=== PATIENT | male | born 1960 | race Caucasian/White ===

== ENCOUNTER 2017-07-24 12:53 | Emergency (ER) | payer BC, OTHER ==
--- NOTE | 2017-07-24 13:05 | EDM.PDOC ---
ED HPI GENERAL MEDICAL PROBLEM - General Chief Complaint: Laceration Stated Complaint: LACERATION TO FINGER Time Seen by Provider: 07/24/17 12:57 Source of Information: Reports: Patient, RN, RN Notes Reviewed History Limitations: Reports: No Limitations - History of Present Illness INITIAL COMMENTS - FREE TEXT/NARRATIVE: Patient presents the emergency room at [facility] after he sustained a laceration to the left index finger. The patient states that he was cutting a piece of insulation to wraparound conduit when the knife slipped causing the laceration. Patient denies any numbness tingling or paresthesia to the affected extremity. The patient denies any previous injury or trauma to the affected site. Patient is not sure of his tetanus status. Otherwise no other concerns. Onset: Today - Related Data Allergies Allergy/AdvReac Type Severity Reaction Status Date / Time No Known Allergies Allergy Verified 07/24/17 13:05 Home Meds: Home Meds . [No Known Home Meds] 07/24/17 [History] ED ROS GENERAL - Review of Systems Review Of Systems: See Below Constitutional: Denies: Fever, Chills, Weakness Respiratory: Denies: Shortness of Breath, Cough Cardiovascular: Denies: Chest Pain, Palpitations Skin: Reports: Wound (cut to left index finger) Neurological: Denies: Numbness, Paresthesia, Tingling ED EXAM, SKIN/RASH Exam: See Below Exam Limited By: No Limitations General Appearance: Alert, No Apparent Distress Respiratory/Chest: No Respiratory Distress, Lungs Clear, Normal Breath Sounds Cardiovascular: Normal Peripheral Pulses, Regular Rate, Rhythm Peripheral Pulses: 2+: Radial (L), Radial (R) Neurological: Alert, Oriented Skin: Warm, Dry, Normal Color, Wound/Incision (2cm vertical laceraton to the distal left index finger; low grade venous ooze; area appears clean) ED SKIN PROCEDURES - Laceration/Wound Repair Left Distal Finger Lac/Wound length In cm: 2 Appearance: Superficial, Linear, Clean Distal NVT: Neuro & Vascular Intact, No Tendon Injury Anesthetic Type: Other (None) Skin Prep: Chlorhexidine (Hibiciens), Saline Exploration/Debridement/Repair: Wound Explored, In a Bloodless Field, Explored to Base, No Foreign Material Found Closed with: Dermabond Sterile Dressing Applied: Nurse Tetanus Status Addressed: Yes Complications: No Departure - Departure Time of Disposition: 13:14 Disposition: Home, Self-Care 01 Condition: Good Clinical Impression: Finger laceration Qualifiers: Encounter type: initial encounter Finger: index finger Damage to nail status: without damage Foreign body presence: without foreign body Laterality: left Qualified Code(s): S61.211A - Laceration without foreign body of left index finger without damage to nail, initial encounter - Discharge Information Instructions: Laceration Care, Adult, [id number], Stitches, [place], or Adhesive Wound Closure, [id number] Forms: ED Department Discharge Additional Instructions: 1. Stay well hydrated and rest 2. Keep area clean and dry 3. Leave bandage on at least 7 days 4. Do not peel glue off, it will release on its own 5. Your TdaP was updated today 6. See your Primary as symptoms warrant 7. Call with any questions, your health is important to us! - Problem List Review Problem List Initiated/Reviewed/Updated: Yes
[2017-07-24] MEDS ORDERED: Diphtheria,Pertussis(Acell),Tetanus Vaccine 0.5 ML Syringe IM ONE (13:13)
== END 2017-07-24 13:48 | disposition home or self-care (01) ==
LOC: SUPCPDRO 12:53 → VM.ED 12:53
DX: S61.211A Laceration without foreign body of left index finger without damage to nail, initial encounter (principal); W26.0XXA Contact with knife, initial encounter
CPT/HCPCS: 12001; 90471; 90715; 99283